=== PATIENT | male | born 1965 ===

== ENCOUNTER 2024-01-20 08:30 | Day surgery (SDC) | payer OTHER ==
[2024-01-18 09:50] LABS: INR 0.97; PARTIAL THROMBOPLASTIN TIME 29.7 SECONDS (22.0-34.0); PROTHROMBIN TIME 10.2 SECONDS (9.0-11.5)
[~2024-01-20] VITALS: Ht 177.8 cm; Wt 119.7 kg
[~2024-01-20 08:30] MED LIST: ALLOPURINOL100 MG PO; COZAAR100 MG PO; DIETHYLPROPION75 MG PO; JARDIANCE25 MG PO; MOUNJARO2.5 MG/0.5
[2024-01-20] MEDS ORDERED: ENOXAPARIN SODIUM 40 MG/0.4 ML SYRINGE SUBCUTANEO ONE (12:37)
[2024-01-20] MEDS ORDERED: BUPIVACAINE HCL/MPF 0.5% 30ML VIAL ONE (12:37)
[2024-01-20] MEDS ORDERED: CEFTRIAXONE SODIUM 2,000 MG VIAL ONE (12:38)
[2024-01-20] MEDS ORDERED: METRONIDAZOLE/SODIUM CHLORIDE 500 MG/100 ML PIGGYBACK IV ONE (12:40)
[2024-01-20] MEDS ORDERED: PERCOCET 5-3251 EACH PO (15:41)
[2024-01-20] MEDS ORDERED: CELEBREX200MG PO (15:42)
[2024-01-20] MEDS ORDERED: NEURONTIN300 MG PO (15:42)
[2024-01-20] MEDS ORDERED: POLY119PG PO (15:42)
== END 2024-01-20 21:00 | disposition home or self-care (01) ==
LOC: CIR.AMB 08:30
PROVIDERS: ATTEND Surgery
DX: K40.20 Bilateral inguinal hernia, without obstruction or gangrene, not specified as recurrent (principal); I10 Essential (primary) hypertension; N28.9 Disorder of kidney and ureter, unspecified
CPT/HCPCS: 49650; C1781